=== PATIENT | female | born 1990 | race Two or more races ===

== ENCOUNTER 2018-06-09 07:30 | Inpatient (IN) | payer OTHER ==
[~2018-06-09 07:30] MED LIST: CITRIC ACID/SODIUM CITRATE 30 ML UNIT-DOSE CUP PO ONE; ELECTROLYTE-148 SOLN 500 ML IV SCH
[2018-06-09] MEDS ORDERED: ELECTROLYTE-148 SOLN 500 ML IV SCH (08:00)
[2018-06-09 08:40] VITALS: BMI 43.5
--- NOTE | 2018-06-09 09:44 | HP ---
Past Medical History - Primary Care Physician PCP:: Mary Melgar - Admission Chief Complaint: 28 yrs , 39 weeks , previous c/section type unknown requests for repeat c/section History of Present Illness: care at [address] [place] [address] . wt gain 22 lbs during pregn . panel : AB pos, rpr nr, hbsg neg, hiv neg, rubella immune , quantiferon neg, 1 hr [id number], gc/ct neg, gbs neg sono serial done for growth by MFM report noted post placenta History Source: Medical Record Limitations to Obtaining History: No Limitations - Past Medical History CLINICAL TRIAL LEADER: No: Migraine, Seizure Cardiovascular: No: HTN Pulmonary: No: Asthma Gastrointestinal: No: Gastritis Hepatobiliary: No: Hepatitis B Renal/: No: UTI ...: 3 ...Para: 1 (06/23/2012 primary c/s 34 weeks twins ) ...Term: 1 ...: 0 ...Spon : 1 (2008 ) ...Induced : 0 ...Multiple Gestation: 0 ...LMP: 08/24/17 ... Weeks Gestation by Dates: 41.2 ...EDC by Dates: 05/31/18 ...EDC by Sono: 06/16/18 (39 weeks by sono ) Infectious Disease: No: AIDS, HIV, STD's, Tuberculosis Psych: Yes: Other (declines h/o mental illness) - Past Surgical History Past Surgical History: Yes: (2011 in ) Hx Myomectomy: No Hx Transabdominal Cerclage: No - Smoking History Smoking history: Never smoked Have you smoked in the past 12 months: No - Alcohol/Substance Use Hx Alcohol Use: No History of Substance Use: reports: None - Social History History of Recent Travel: No Home Medications - Allergies Allergies/Adverse Reactions: Allergies Allergy/AdvReac Type Severity Reaction Status Date / Time No Known Allergies Allergy Verified 06/09/18 08:09 - Home Medications Home Medications: Ambulatory Orders Ferrous Sulfate [Feosol] 325 mg PO DAILY 06/09/18 Vitamins (Sjr) - 1 tab PO DAILY 06/09/18 Physical Exam - Maternity Vital Signs: Vital Signs Temperature 98.6 F 06/09/18 08:00 Pulse Rate 111 H 06/09/18 08:00 Respiratory Rate 20 06/09/18 08:00 Blood Pressure 131/64 06/09/18 08:00 O2 Sat by Pulse Oximetry (%) Selected Entries 06/09/18 08:10 Weight 270 lb Constitutional: Yes: Well Nourished, Obese Eyes: Yes: WNL HENT: Yes: WNL, Normocephalic Neck: Yes: WNL Cardiovascular: Yes: WNL, Regular Rate and Rhythm Lungs: Clear to auscultation Breast(s): Yes: WNL (large breast). No: Mass - Vaginal Exam/OB Vaginal Bleediing: No Speculum Exam: No Dilatation (cm): close Effacement (%): unefface Amniotic Membrane Status: Intact Presentation: Vertex/Position Station: -3 - Physical Exam Musculoskeletal: Yes: WNL Extremities: Yes: WNL. No: Calf Tenderness Edema: Yes Edema: LLE: 1+, RLE: 1+ Integumentary: Yes: Incision (pfannensteil scar) Deep Tendon Reflex Grade: Normal +2 ...Motor Strength: WNL Psychiatric: Yes: WNL, Alert, Oriented - Labs Lab Results: Laboratory Tests 06/06/18 06/06/18 06/06/18 17:15 17:15 17:15 WBC 8.0 Hgb 12.5 Hct 39.1 MCV 82.4 MCH 26.4 MCHC 32.1 Plt Count 207 Absolute Neuts (auto) 5.9 Neutrophils % 73.5 Lymphocytes % 19.4 Monocytes % 6.3 PT with INR 11.40 INR 1.01 Sodium Potassium Chloride Carbon Dioxide BUN Creatinine Random Glucose Calcium Total Bilirubin AST ALT Alkaline Phosphatase Total Protein Albumin Urine Protein 1+ H Urine Glucose (UA) 2+ H Ur Leukocyte Esterase Negative Urine WBC (Auto) 1 Urine RBC (Auto) 3 Urine Bacteria Few RPR Titer 06/06/18 06/06/18 17:15 17:15 WBC Hgb Hct MCV MCH MCHC Plt Count Absolute Neuts (auto) Neutrophils % Lymphocytes % Monocytes % PT with INR INR Sodium 139 Potassium 4.1 Chloride 105 Carbon Dioxide 23 BUN 11 Creatinine 0.6 Random Glucose 142 H Calcium 9.3 Total Bilirubin 0.2 AST 11 L ALT 20 Alkaline Phosphatase 123 H Total Protein 7.0 Albumin 3.0 L Urine Protein Urine Glucose (UA) Ur Leukocyte Esterase Urine WBC (Auto) Urine RBC (Auto) Urine Bacteria RPR Titer Nonreactive Hemorrhage Risk Assessment - Risk Factors Medium Risk Factors: Yes: Prior , uterine surgery,or multiple laparotomies, Obesity (BMI >40) Risk Score: 2 Risk Level: High Risk Problem List - Problems (1) with 39 completed weeks gestation Code(s): Z3A.39 - 39 WEEKS GESTATION OF (2) Previous section Code(s): Z98.891 - HISTORY OF UTERINE SCAR FROM PREVIOUS SURGERY (3) Morbid obesity with BMI of 40.0-44.9, adult Code(s): E66.01 - MORBID (SEVERE) OBESITY DUE TO EXCESS CALORIES; Z68.41 - BODY MASS INDEX (BMI) 40.0-44.9, ADULT Assessment/Plan 28 yrs , 39 weeks, previous c/section type unknown requests for repeat c/ section plan Repeat LFTC/Section
[2018-06-09] MEDS ORDERED: morphine SULFATE/Preservative Free 0.5 MG/ML (1cc Syringe) ONE (10:19)
[2018-06-09] MEDS ORDERED: ePHEDrine SULFATE 50 MG/1 ML AMPULE ONE (10:19)
[2018-06-09] MEDS ORDERED: OXYTOCIN 10 UNITS/ML VIAL ONE (10:58)
[2018-06-09] MEDS ORDERED: ceFAZolin SODIUM 1 GM VIAL ONE ×2 (10:58→17:17)
[2018-06-09 11:14] LABS: ARTERIAL BLOOD GAS BASE EXCESS -1.5 meq/l (-2-2); ARTERIAL BLOOD GAS PCO2 62.1 mmHg (35-45); ARTERIAL BLOOD GAS PO2 13.8 mmHg (80-100); ARTERIAL BLOOD GAS pH 7.26 (7.35-7.45)
[2018-06-09 11:22] LABS: VENOUS PC02 48.3 mmHg (38-52); VENOUS PH 7.34 (7.32-7.42); VENOUS PO2 26.5 mmHg (28-48)
[2018-06-09] MEDS ORDERED: OXYTOCIN 20 UNITS in 0.9% NS 20 UNIT/1,000 ML INFUS.BAG IV ONE ×2 (11:32→16:26)
[2018-06-09] MEDS ORDERED: morphine SULFATE/Preservative Free 0.5 MG/ML (1cc Syringe) EP ONE (12:04)
[2018-06-09] MEDS ORDERED: ONDANSETRON 4 MG/2 ML VIAL IVPUSH PRN (12:04)
[2018-06-09] MEDS ORDERED: METHYLERGONOVINE MALEATE 0.2 MG/1 ML AMP IM PRN (12:22)
--- NOTE | 2018-06-09 12:33 | PN ---
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 intra op course uneventful
--- NOTE | 2018-06-09 12:43 | OP ---
Operative Note - Note: Operative Date: 06/09/18 Pre-Operative Diagnosis: 39 weeks, previous c/section type unknown ,morbid obesity Operation: Repeat LFTc/section Findings: baby girl, 9/10 , wt 8'15", 10.48AM , ROP both tubes & ovaries normal Dr Isabelle Kumar Manager Epic present in OR Surgeon: Mary Melgar Panman: Robbi Figueroa Anesthesiologist/SOFTWARE ARCHITECT: Saskia Sorensen MD Anesthesia: Spinal Specimens Removed: cord segment for cord gas. cord blood. placenta Estimated Blood Loss (mls): 800 Drains, Volume Out (mls): 150 Fluid Volume Replaced (mls): 2,000 (2 gm iv ancef intraop ) Operative Report Dictated: Yes
--- NOTE | 2018-06-09 13:15 | OP ---
DATE OF OPERATION: 06/09/2018 PREOPERATIVE DIAGNOSIS: At 39 weeks, previous section type unknown, morbid obesity. OPERATION: Repeat low transverse section. SURGEON: Mary Melgar MD HOME STAGER SURGEON: ODETTE Chan ANESTHESIA: Saskia Sorensen MD, spinal. PRINTING GREY CLOTH TENDER: Regine Walton MD FINDINGS: This is a 28-year-old 3, para 1-0-1-1 previous section for twins in [place] and operative report not obtained. She was not in labor. She is morbidly obese, BMI 43. Baby girl Apgars 9/10. Weight was 8 pounds 15 ounces, ROP position. Cord around the neck x1. DESCRIPTION OF PROCEDURE: The patient is taken to the operating room table, and spinal anesthesia was given. Abdomen was shaved and prepped. Bonilla catheter was placed prior to that. SCD stockings were applied prior to spinal anesthesia. After spinal anesthesia, she was placed in supine position. Abdomen was painted and draped in the usual manner, and Pfannenstiel incision was made through previous scar in skin and subcutaneous tissue. Anterior rectus sheath was incised transversely. Bleeding points were clamped and cauterized. Rectus muscle was from the rectus sheath. Peritoneal peritoneum was opened vertically. The lower flap by the peritoneum was incised transversely. Lower uterine segment was isolated, and the lower uterine segment was incised transversely. Baby girl was delivered at 10: 48 a.m. Apgars were 9/10. Baby's weight was 8 pounds 15 ounces. ROP position. The baby was delivered. Cord around the neck was released. Amniotic fluid was clear. The placenta was removal completely with the membranes, and the uterine incision was closed with 2 layers. First layer was a continuous locking with a Biosyn single suture. Second layer was a continuous intermittent locking with a Biosyn single suture. Small hematoma in the left angle of the uterine incision was taken care of by taking a hemostatic [id number] suture. Bladder peritoneum was closed with an interrupted Biosyn single suture. Both tubes and ovaries were normal. Irrigation was done. Sponge, instrument, and needle count was correct. Closure of the abdomen was done. Parietal peritoneum was closed with a Vicryl 0 suture. Muscles were approximated together with Vicryl 0 sutures. Interrupted sutures were taken underneath the anterior rectus sheath. Hemostasis was verified. Anterior rectus sheath was closed with a Vicryl 0 suture, and continuous sutures were taken. Hemostasis was checked in the subcutaneous tissue. The subcutaneous tissue was approximated with a Biosyn single continuous suture then the skin was approximated with the stephen. The patient tolerated the procedure well. Estimated blood loss was 800 mL. Urine output intraoperatively was 150 mL. She received 2 g of IV Ancef prior to the incision. She was transferred to the recovery room in stable condition. Prior to that, blood clots were removed from the vagina, and pressure dressing was given. Sanya [id number] MTDD
[2018-06-09] MEDS: IBUPROFEN 800 MG/8 ML IJ IVPB PRN ×2 (13:32→22:41)
[2018-06-09] MEDS ORDERED: IBUPROFEN 800 MG/8 ML IJ IVPB ONE (13:34)
[2018-06-09] MEDS: OXYTOCIN 20 UNITS in 0.9% NS 20 UNIT/1,000 ML INFUS.BAG IV SCH (16:30)
[2018-06-09] MEDS ORDERED: DEXTROSE 5%-WATER - 50 ML IVPB ONE (17:17)
[2018-06-09] MEDS: CEFAZOLIN 1 GM in DEXTROSE 5%-WATER - 50 ML IVPB SCH (17:28)
[2018-06-10] MEDS ORDERED: DEXTROSE 5%-WATER - 50 ML IVPB ONE ×2 (02:03→09:59)
[2018-06-10] MEDS ORDERED: ceFAZolin SODIUM 1 GM VIAL ONE ×2 (02:03→09:59)
[2018-06-10] MEDS: CEFAZOLIN 1 GM in DEXTROSE 5%-WATER - 50 ML IVPB SCH ×2 (02:06→10:03)
[2018-06-10] MEDS: ACETAMINOPHEN 325 MG TABLET (FP) PO PRN ×4 (06:47→22:21)
[2018-06-10] MEDS: IBUPROFEN 600 MG TABLET (FP) PO PRN ×4 (06:47→22:20)
[2018-06-10] MEDS: SIMETHICONE 80 MG TAB.CHEW (FP) PO PRN ×4 (06:47→22:20)
[2018-06-10 07:38] LABS: BASO % 0.3 % (0-2.0); EOS % 0.9 % (0-4.5); HEMATOCRIT 35.1 % (32.4-45.2); HEMOGLOBIN 11.1 GM/dL (10.7-15.3); LYMPH % 19.2 % (8-40); MCH 26.2 pg (25.7-33.7); MCHC 31.7 g/dl (32.0-36.0); MEAN CELL VOLUME 82.6 fl (80-96); MEAN PLT VOLUME 9.7 fl (7.5-11.1); MONO % 8.4 % (3.8-10.2); NEUT % 71.2 % (42.8-82.8); PLATELET COUNT 171 K/MM3 (134-434); RBC 4.25 M/mm3 (3.60-5.2); RDW 15.2 % (11.6-15.6); WHITE BLOOD COUNT 8.6 K/mm3 (4.0-10.0)
--- NOTE | 2018-06-10 08:18 | PN ---
Progress Note (short form) - Note Progress Note: Post op day#1.S/P C Section under spinal anesthesia with duramorph uneventful.Patient stable and has little pain for which she is on medication.No any anesthesia related problem.Patient DC from the anesthesia care.
--- NOTE | 2018-06-10 08:26 | PN ---
Progress Note (short form) - Note Progress Note: pod 1doing well, no c/o CBC, BMP 06/10/18 07:05 Last Vital Signs Temp Pulse Resp BP Pulse Ox 98.5 F 114 H 18 125/72 100 06/10/18 06:00 06/10/18 06:00 06/10/18 08:00 06/10/18 06:00 06/09/18 13:15 abdomen soft , no distension , no cva incision dry, clean no calf tenderness impression tachycardia , asymptomatic plan monitor pulse , if tachy ,cont, will get EKG po hydration
[2018-06-10] MEDS: ENOXAPARIN NA (PORCINE) 40 MG/0.4 ML DISP.SYRIN SQ SCH (10:02)
[2018-06-10] MEDS: PRENATAL VITAMINS W/ FOLIC ACID TABLET (FP) PO SCH (10:02)
[2018-06-10] MEDS ORDERED: BISACODYL 10 MG SUPP.RECT RC PRN (12:22)
[2018-06-10] MEDS: OXYTOCIN 20 UNITS in 0.9% NS 20 UNIT/1,000 ML INFUS.BAG IV SCH (18:02)
[2018-06-10] MEDS: SENNOSIDES/DOCUSATE COMBO (SENNA PLUS) TABLET (UD) PO PRN (22:20)
[2018-06-10] MEDS: FERROUS SO4 325 MG TABLET (FP) PO SCH (22:21)
[2018-06-11] MEDS: oxyCODONE HCL 5 MG TABLET PO PRN ×4 (07:49→21:01)
[2018-06-11] MEDS: SIMETHICONE 80 MG TAB.CHEW (FP) PO PRN ×4 (07:50→21:01)
[2018-06-11] MEDS: IBUPROFEN 600 MG TABLET (FP) PO PRN ×3 (07:50→17:18)
--- NOTE | 2018-06-11 08:22 | PN ---
Post Progress Note - Subjective Subjective: c/o pain scale8/10, last pain meds taken at 9.00 PM yesterday voiding without difficlty bmdone Post Day: 2 Type of Delivery: Repeat C/S Vital Signs: Vital Signs Temperature 98.5 F 06/10/18 22:00 Pulse Rate 105 H 06/10/18 22:00 Respiratory Rate 18 06/10/18 22:00 Blood Pressure 105/58 06/10/18 22:00 O2 Sat by Pulse Oximetry (%) 100 06/09/18 13:15 Breast Exam: Yes: Soft. No: Engorged Uterus: Yes: Fundus Firm, Fundus below umbilicus, Non-tender Incision: Yes: [place] intact. No: Redness, Oozing Abdomen/GI: Yes: Abdomen soft, Abdominal Distention (obese abdomen ), Passing flatus, Tolerating PO (diet) Lochia: Yes: Rubra Lochia, amount: Moderate Extremities: Yes: Calves non-tender Perineum: Yes: Intact Activity: Ambulating - Labs Labs: CBC WBC 8.6 K/mm3 (4.0-10.0) 06/10/18 07:05 RBC 4.25 M/mm3 (3.60-5.2) 06/10/18 07:05 Hgb 11.1 GM/dL (10.7-15.3) 06/10/18 07:05 Hct 35.1 % (32.4-45.2) 06/10/18 07:05 MCV 82.6 fl (80-96) 06/10/18 07:05 MCH 26.2 pg (25.7-33.7) 06/10/18 07:05 MCHC 31.7 g/dl (32.0-36.0) L 06/10/18 07:05 RDW 15.2 % (11.6-15.6) 06/10/18 07:05 Plt Count 171 K/MM3 (134-434) 06/10/18 07:05 MPV 9.7 fl (7.5-11.1) 06/10/18 07:05 Absolute Neuts (auto) 6.1 K/mm3 (1.5-8.0) 06/10/18 07:05 Neutrophils % 71.2 % (42.8-82.8) 06/10/18 07:05 Lymphocytes % 19.2 % (8-40) 06/10/18 07:05 Monocytes % 8.4 % (3.8-10.2) 06/10/18 07:05 Eosinophils % 0.9 % (0-4.5) 06/10/18 07:05 Basophils % 0.3 % (0-2.0) 06/10/18 07:05 Nucleated RBC % 0 % (0-0) 06/10/18 07:05 Problem List - Problems (1) with 39 completed weeks gestation Code(s): Z3A.39 - 39 WEEKS GESTATION OF (2) Previous section Code(s): Z98.891 - HISTORY OF UTERINE SCAR FROM PREVIOUS SURGERY (3) Morbid obesity with BMI of 40.0-44.9, adult Code(s): E66.01 - MORBID (SEVERE) OBESITY DUE TO EXCESS CALORIES; Z68.41 - BODY MASS INDEX (BMI) 40.0-44.9, ADULT (4) delivery delivered Code(s): O82 - ENCOUNTER FOR DELIVERY WITHOUT INDICATION (5) Encounter for visit Code(s): Z39.2 - ENCOUNTER FOR ROUTINE FOLLOW-UP Assessment/Plan stable Plan ct post op care encourage ambulation, deep breathing po fluid s
[2018-06-11] MEDS: PRENATAL VITAMINS W/ FOLIC ACID TABLET (FP) PO SCH (09:50)
[2018-06-11] MEDS: FERROUS SO4 325 MG TABLET (FP) PO SCH ×2 (09:50→21:02)
[2018-06-11] MEDS: ENOXAPARIN NA (PORCINE) 40 MG/0.4 ML DISP.SYRIN SQ SCH (09:56)
[2018-06-11] MEDS ORDERED: DIPHTH,PERTUSS(ACELL),TET 0.5 ML DISP.SYRIN IM ONE (10:00)
[2018-06-11] MEDS: ACETAMINOPHEN 325 MG TABLET (FP) PO PRN (21:01)
[2018-06-11] MEDS: SENNOSIDES/DOCUSATE COMBO (SENNA PLUS) TABLET (UD) PO PRN (21:03)
[2018-06-12] MEDS: oxyCODONE HCL 5 MG TABLET PO PRN ×4 (01:23→17:59)
[2018-06-12] MEDS: ACETAMINOPHEN 325 MG TABLET (FP) PO PRN ×2 (01:23→21:13)
[2018-06-12] MEDS: SIMETHICONE 80 MG TAB.CHEW (FP) PO PRN ×5 (01:24→21:13)
[2018-06-12] MEDS: IBUPROFEN 600 MG TABLET (FP) PO PRN ×4 (04:59→21:13)
[2018-06-12] MEDS: SENNOSIDES/DOCUSATE COMBO (SENNA PLUS) TABLET (UD) PO PRN (07:57)
[2018-06-12 08:13] LABS: BASO % 0.4 % (0-2.0); EOS % 3.3 % (0-4.5); HEMATOCRIT 30.5 % (32.4-45.2); HEMOGLOBIN 9.9 GM/dL (10.7-15.3); LYMPH % 31.6 % (8-40); MCH 26.8 pg (25.7-33.7); MCHC 32.6 g/dl (32.0-36.0); MEAN CELL VOLUME 82.4 fl (80-96); MEAN PLT VOLUME 9.6 fl (7.5-11.1); MONO % 8.3 % (3.8-10.2); NEUT % 56.4 % (42.8-82.8); PLATELET COUNT 172 K/MM3 (134-434); RDW 15.1 % (11.6-15.6); WHITE BLOOD COUNT 6.4 K/mm3 (4.0-10.0)
--- NOTE | 2018-06-12 08:35 | PN ---
Post Progress Note - Subjective Subjective: pain scale 10 Post Day: 3 Type of Delivery: Repeat C/S Vital Signs: Vital Signs Temperature 98 F 06/11/18 21:00 Pulse Rate 108 H 06/11/18 21:00 Respiratory Rate 18 06/11/18 21:00 Blood Pressure 103/73 06/11/18 21:00 O2 Sat by Pulse Oximetry (%) 100 06/09/18 13:15 Breast Exam: Yes: Soft, Other (BF ). No: Engorged Uterus: Yes: Fundus Firm, Fundus below umbilicus, Non-tender Incision: Yes: [place] intact. No: Redness, Oozing Abdomen/GI: Yes: Abdomen soft, Abdominal Distention (obese abdomen ), Passing flatus (bm not done ), Tolerating PO (diet ). No: Tender Lochia: Yes: Rubra Lochia, amount: Moderate Extremities: Yes: Calves non-tender Perineum: Yes: Intact Activity: Ambulating - Labs Labs: CBC WBC 6.4 K/mm3 (4.0-10.0) 06/12/18 07:40 RBC 3.70 M/mm3 (3.60-5.2) 06/12/18 07:40 Hgb 9.9 GM/dL (10.7-15.3) L 06/12/18 07:40 Hct 30.5 % (32.4-45.2) L 06/12/18 07:40 MCV 82.4 fl (80-96) 06/12/18 07:40 MCH 26.8 pg (25.7-33.7) 06/12/18 07:40 MCHC 32.6 g/dl (32.0-36.0) 06/12/18 07:40 RDW 15.1 % (11.6-15.6) 06/12/18 07:40 Plt Count 172 K/MM3 (134-434) 06/12/18 07:40 MPV 9.6 fl (7.5-11.1) 06/12/18 07:40 Absolute Neuts (auto) 3.6 K/mm3 (1.5-8.0) 06/12/18 07:40 Neutrophils % 56.4 % (42.8-82.8) D 06/12/18 07:40 Lymphocytes % 31.6 % (8-40) D 06/12/18 07:40 Monocytes % 8.3 % (3.8-10.2) 06/12/18 07:40 Eosinophils % 3.3 % (0-4.5) D 06/12/18 07:40 Basophils % 0.4 % (0-2.0) 06/12/18 07:40 Nucleated RBC % 0 % (0-0) 06/12/18 07:40 Problem List - Problems (1) with 39 completed weeks gestation Code(s): Z3A.39 - 39 WEEKS GESTATION OF (2) Previous section Code(s): Z98.891 - HISTORY OF UTERINE SCAR FROM PREVIOUS SURGERY (3) Morbid obesity with BMI of 40.0-44.9, adult Code(s): E66.01 - MORBID (SEVERE) OBESITY DUE TO EXCESS CALORIES; Z68.41 - BODY MASS INDEX (BMI) 40.0-44.9, ADULT (4) delivery delivered Code(s): O82 - ENCOUNTER FOR DELIVERY WITHOUT INDICATION (5) Encounter for visit Code(s): Z39.2 - ENCOUNTER FOR ROUTINE FOLLOW-UP (6) Anemia Code(s): D64.9 - ANEMIA, UNSPECIFIED Qualifiers: Anemia type: iron deficiency Assessment/Plan stable. plan ct po care discharge tomorrow.
[2018-06-12] MEDS: PRENATAL VITAMINS W/ FOLIC ACID TABLET (FP) PO SCH (09:28)
[2018-06-12] MEDS: FERROUS SO4 325 MG TABLET (FP) PO SCH ×2 (09:28→21:13)
[2018-06-12] MEDS: ENOXAPARIN NA (PORCINE) 40 MG/0.4 ML DISP.SYRIN SQ SCH (09:28)
[2018-06-13] MEDS: IBUPROFEN 600 MG TABLET (FP) PO PRN (02:33)
[2018-06-13] MEDS: ACETAMINOPHEN 325 MG TABLET (FP) PO PRN (02:33)
[2018-06-13] MEDS: SIMETHICONE 80 MG TAB.CHEW (FP) PO PRN (02:33)
[2018-06-13] MEDS: oxyCODONE HCL 5 MG TABLET PO PRN (05:02)
[2018-06-13 07:36] VITALS: BP 115/66; PULSE 88; TEMP 98.4
[2018-06-13] MEDS: FERROUS SO4 325 MG TABLET (FP) PO SCH (09:42)
[2018-06-13] MEDS: PRENATAL VITAMINS W/ FOLIC ACID TABLET (FP) PO SCH (09:42)
[2018-06-13] MEDS: ENOXAPARIN NA (PORCINE) 40 MG/0.4 ML DISP.SYRIN SQ SCH (09:43)
--- NOTE | 2018-06-13 10:04 | DS ---
Physical Exam-TUBE BENDER Vital Signs: Vital Signs Temperature 98.4 F 06/13/18 07:34 Pulse Rate 88 06/13/18 07:34 Respiratory Rate 20 06/13/18 07:34 Blood Pressure 115/66 06/13/18 07:34 O2 Sat by Pulse Oximetry (%) 100 06/09/18 13:15 Constitutional: Yes: Well Nourished, Obese Eyes: Yes: WNL HENT: Yes: WNL, Normocephalic Neck: Yes: WNL Cardiovascular: Yes: WNL, Regular Rate and Rhythm Respiratory: Yes: WNL, CTA Bilaterally Gastrointestinal: Yes: WNL, Normal Bowel Sounds, Soft, Abdomen, Obese, Other ( bm done). No: Distention Renal/: Yes: WNL. No: CVA Tenderness - Left, CVA Tenderness - Right ....Post : Yes: Uterus firm, Uterus non-tender, Moderate lochia rubra Breast(s): Yes: WNL (not engorged) Musculoskeletal: Yes: WNL Extremities: Yes: WNL. No: Calf Tenderness Edema: LLE: 1+, RLE: 1+ Wound/Incision: Yes: Clean/Dry, Open to air, [place] Removed. 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 morbidly obese. intra op course uneventful post op course uneventful anemia counselled discharge today. Discharge Summary Reason For Visit: Current Active Problems Anemia (Acute) delivery delivered (Acute) Encounter for visit (Acute) Morbid obesity with BMI of 40.0-44.9, adult (Acute) with 39 completed weeks gestation (Acute) Previous section (Acute) Condition: Stable - Instructions Diet, Activity, Other Instructions: Post Instructions DIET: Continue good diet high in protein, calcium, and iron rich foods. Drink at least eight (8) glasses of water daily in addition to other fluids. ___ Regular diet MEDICATIONS: Continue vitamins and iron as previously directed. Motrin and Tylenol may be taken for minor discomfort. ACTIVITY: Mild to moderate exercise may be started in two (2) weeks. Take frequent rest periods. Resume normal activity after six (6) week check up. WOUND CARE OF OPERATIVE SITE: Continue use of perineal bottle until vaginal discharge stops. Keep area clean. Shower daily. Keep abdominal wound dry. Report any drainage or redness to physician. Tub baths, tampons and douches are not permitted for [address] Breast feeding & or Bottle feeding BREAST CARE: (For those that are not breast feeding): If engorgement occurs: Wear tight fitting bra. Take Tylenol or Motrin for pain. Apply cold packs (ice in bags to each breast ) FAMILY PLANNING: There are many control alternatives to pursue and they should be discussed at your first office visit. You may resume sexual activity after your six (6) week check up. (Remember, breast feeding is not a contraceptive) NEXT PHYSICIAN APPOINTMENT: Be certain to call for a one (1 ) week appointment, unless otherwise directed. Call Clinic or got to Emergency Dept if you have any of the following: Heavy vaginal bleeding Painful urination Leg pain Unusual odor noted to vaginal bleeding High fever Red streaking noted on breast Referrals: Mary Melgar MD [Staff Physician] - Disposition: HOME - Home Medications Comprehensive Discharge Medication List: Ambulatory Orders Ferrous Sulfate [Feosol] 325 mg PO DAILY 06/09/18 Vitamins (Sjr) - 1 tab PO DAILY 06/09/18 Acetaminophen [Tylenol .Regular Strength -] 500 mg PO Q4H PRN #30 tablet Ferrous Sulfate [Feosol] 325 mg PO BID #60 tab 06/12/18 Ibuprofen [Motrin -] 600 mg PO Q4H PRN #30 tablet 06/12/18 Vitamins (Sjr) - 1 tab PO DAILY #30 tablet 06/12/18
--- NOTE | 2018-06-16 15:38 | PATH ---
Surgical Pathology Report Patient Name: NADEEM TORRES Med. Rec. #: [id number] /Age/Gender: 1990 (Age: 28) / F Account: [id number] Location: [facility] OBS/DOCUMENT DESIGN SPECIALIST Taken: 06/09/2018 Received: 06/10/2018 Reported: 06/16/2018 Physicians: Mary Melgar M.D. Specimen(s) Received PLACENTA Clinical History Final Diagnosis PLACENTA, SECTION: 494 G THIRD TRIMESTER PLACENTA WITH TRIVASCULAR UMBILICAL CORD AND MILD ACUTE CHORIOAMNIONITIS. Electronically Signed Natalie Trujillo M.D. Gross Description The specimen is received fresh labeled placenta and is a 494 gram, 17.0 x 13.0 x 3.2 cm. placenta with attached membranes and umbilical cord. The attached membranes are gao, translucent with focal opacities and insert marginally. The umbilical cord measures 25 cm. in length and averages 1 cm. in diameter. The cord inserts eccentrically, 4.5 cm. to the nearest margin. No true knots or strictures are identified. Cut surface of the umbilical cord reveals 3 vessels. The surface is padgett-blue with minimal fibrin deposition and appropriate caliber vessels. The maternal surface is red-brown and intact. Sectioning reveals red-brown, spongy parenchyma. No lesions are identified. Field Marketing Lead sections are submitted in three cassettes as follows: 1- membrane rolls and umbilical cord; 2-3- full thickness sections of placenta. 06/15/2018 [facility]06/15/2018
== END 2018-06-13 11:45 | disposition home or self-care (01) | DRG 540 ==
LOC: JLDR 07:30 → J3W 14:10
PROVIDERS: ADMIT Obstetrics & Gynecology; ATTEND Obstetrics & Gynecology
PROC: 10D00Z1 Extraction of Products of Conception, Low, Open Approach (ICD-10-PCS; principal; 2018-06-09)
DX: O34.211 Maternal care for low transverse scar from previous cesarean delivery (principal); N85.8 Other specified noninflammatory disorders of uterus; O99.214 Obesity complicating childbirth; E66.01 Morbid (severe) obesity due to excess calories; Z68.41 Body mass index [BMI] 40.0-44.9, adult; O99.02 Anemia complicating childbirth; D64.9 Anemia, unspecified; Z3A.39 39 weeks gestation of pregnancy; Z37.0 Single live birth
CPT/HCPCS: 36415; 36600; 82803; 85025; 88307-TC; 90715; 94010

== ENCOUNTER → 2020-12-02 | Day surgery (SDC) | payer OTHER ==
[2020-11-28 12:18] VITALS: BMI 31.9
[~2020-12-02] MED LIST changes: +BUPIVACAINE HCL 50 ML ONE; +BUPIVACAINE HCL/PF 0.25% (2.5MG/ML) 10 ML VIAL ONE; -CITRIC ACID/SODIUM CITRATE 30 ML UNIT-DOSE CUP PO ONE; -ELECTROLYTE-148 SOLN 500 ML IV SCH
== END | disposition home or self-care (01) ==
LOC: JASU-SURG 04:24
PROVIDERS: ATTEND Obstetrics & Gynecology
DX: Z53.8 Procedure and treatment not carried out for other reasons (principal)

== ENCOUNTER 2022-10-13 12:31 | Observation (INO) | payer OTHER ==
[2022-10-13 12:42] VITALS: BMI 29.7
[2022-10-13 13:56] LABS: BASO % 0.7 % (0-2.0); EOS % 0.9 % (0-4.5); HEMATOCRIT 35.3 % (32.4-45.2); HEMOGLOBIN 10.7 GM/dL (10.7-15.3); LYMPH % 34.1 % (8-40); MCH 22.5 pg (25.7-33.7); MCHC 30.3 g/dl (32.0-36.0); MEAN CELL VOLUME 74.3 fl (80-96); MEAN PLT VOLUME 10.3 fl (7.5-11.1); MONO % 7.9 % (3.8-10.2); NEUT % 56.4 % (42.8-82.8); PLATELET COUNT 257 10^3/uL (134-434); RBC 4.76 M/mm3 (3.60-5.2); RDW 15.8 % (11.6-15.6); WHITE BLOOD COUNT 4.7 K/mm3 (4.0-10.0)
[2022-10-13 14:00] LABS: INR 1.11 (0.83-1.09); PROTHROMBIN TIME (PATIENT) 12.8 SEC (9.7-13.0)
[2022-10-13 14:03] LABS: ACTIVATED PTT 26.6 SECONDS (25.2-36.5)
[2022-10-13 14:31] LABS: ALBUMIN 3.9 g/dl (3.4-5.0)
[2022-10-13 14:32] LABS: BLOOD UREA NITROGEN 23.3 mg/dL (7-18)
[2022-10-13 14:34] LABS: CREATININE 0.8 mg/dL (0.55-1.3)
[2022-10-13 14:36] LABS: TOT PROT 7.7 g/dl (6.4-8.2)
[2022-10-13 14:37] LABS: BILIRUBIN,TOTAL 0.6 mg/dL (0.2-1)
[2022-10-14 01:21] VITALS: TEMP 98.2
[2022-10-14 08:19] LABS: BASO % 1.2 % (0-2.0); EOS % 1.8 % (0-4.5); HEMATOCRIT 32.1 % (32.4-45.2); HEMOGLOBIN 9.8 GM/dL (10.7-15.3); MCH 22.6 pg (25.7-33.7); MCHC 30.6 g/dl (32.0-36.0); MEAN CELL VOLUME 73.9 fl (80-96); MEAN PLT VOLUME 10.1 fl (7.5-11.1); MONO % 7.5 % (3.8-10.2); NEUT % 47.5 % (42.8-82.8); PLATELET COUNT 222 10^3/uL (134-434); RBC 4.35 M/mm3 (3.60-5.2); RDW 15.9 % (11.6-15.6); WHITE BLOOD COUNT 4.9 K/mm3 (4.0-10.0)
[2022-10-14 08:25] LABS: ALBUMIN 3.6 g/dl (3.4-5.0); MAGNESIUM 2.4 mg/dL (1.8-2.4)
[2022-10-14 08:27] LABS: PHOSPHOROUS 3.3 mg/dL (2.5-4.9)
[2022-10-14 08:29] LABS: BILIRUBIN,TOTAL 0.6 mg/dL (0.2-1)
[2022-10-14 08:30] LABS: CREATININE 0.7 mg/dL (0.55-1.3)
[2022-10-14 09:42] VITALS: BP 101/67; PULSE 86; RESP 18
[2022-10-14] MEDS ORDERED: ENOXAPARIN NA (PORCINE) 40 MG/0.4 ML DISP.SYRIN SQ SCH (10:00)
[2022-10-14 11:23] LABS: URINE APPEARANCE TURBID; URINE BILIRUBIN NEGATIVE (NEGATIVE); URINE COLOR DK YELLOW; URINE GLUCOSE (UA) NEGATIVE (NEGATIVE); URINE KETONE TRACE (NEGATIVE); URINE LEUK ESTERASE NEGATIVE (NEGATIVE); URINE NITRITE NEGATIVE (NEGATIVE); URINE PROTEIN NEGATIVE (NEGATIVE)
[2022-10-14] MEDS ORDERED: ENOXAPARIN NA (PORCINE) 40 MG/0.4 ML DISP.SYRIN SQ ONE (11:47)
[2022-10-14] MEDS ORDERED: ATORVASTATIN CA 80 MG TABLET (FP) PO SCH (22:00)
== END 2022-10-14 17:26 | disposition home or self-care (01) ==
LOC: JER 12:31 → JERBED 16:25
PROVIDERS: ADMIT Internal Medicine; ATTEND Internal Medicine
PROC: 3E023GC Introduction of Other Therapeutic Substance into Muscle, Percutaneous Approach (ICD-10-PCS; principal; 2022-10-13)
DX: G45.9 Transient cerebral ischemic attack, unspecified (principal); R29.810 Facial weakness; M62.81 Muscle weakness (generalized); F99 Mental disorder, not otherwise specified; D64.9 Anemia, unspecified; E66.3 Overweight; Z68.29 Body mass index [BMI] 29.0-29.9, adult
CPT/HCPCS: 36415; 70450-TC; 70496-TC; 70498-TC; 70551-TC; 80053; 80061; 81003; 82550; 83036; 83735; 84100; 84484; 84703; 85025; 85610; 85730; 86850; 86900; 86901; 93005; 93010; 93306-TC; 96372; 99285-25; C9803-CS; G0378; Q9967; U0003; U0005

== ENCOUNTER 2023-12-24 16:53 | Emergency (ER) | payer OTHER ==
[2023-12-24 17:02] VITALS: BP 100/64; PULSE 96; RESP 18; TEMP 97; BMI 27.8
[2023-12-24 19:45] LABS: BASO % 1.2 % (0-2.0); EOS % 0.7 % (0-4.5); HEMATOCRIT 26.4 % (32.4-45.2); HEMOGLOBIN 7.9 GM/dL (10.7-15.3); LYMPH % 39.5 % (8-40); MEAN PLT VOLUME 8.9 fl (7.5-11.1); MONO % 6.5 % (3.8-10.2); NEUT % 52.1 % (42.8-82.8); PLATELET COUNT 356 10^3/uL (134-434); WHITE BLOOD COUNT 4.3 K/mm3 (4.0-10.0)
[2023-12-24 19:47] LABS: MCH 18.9 pg (25.7-33.7)
[2023-12-24 19:52] LABS: INR 1.06 (0.83-1.09); PROTHROMBIN TIME (PATIENT) 12.3 SEC (9.7-13.0)
[2023-12-24 19:55] LABS: ACTIVATED PTT 26.3 SECONDS (25.2-36.5)
[2023-12-24 20:03] LABS: POTASSIUM 4.3 mmol/L (3.5-5.1)
[2023-12-24 20:05] LABS: CALCIUM 9.2 mg/dL (8.5-10.1)
[2023-12-24 20:06] LABS: ALBUMIN 3.7 g/dl (3.4-5.0); BLOOD UREA NITROGEN 17.2 mg/dL (7-18)
[2023-12-24 20:09] LABS: CREATININE 0.7 mg/dL (0.55-1.3)
[2023-12-24 20:11] LABS: TOT PROT 7.4 g/dl (6.4-8.2)
[2023-12-24 20:16] LABS: BILIRUBIN,TOTAL 0.2 mg/dL (0.2-1)
[2023-12-24 20:46] LABS: ANISOCYTOSIS 1+; OVALOCYTE 1+; TEAR DROP CELLS 1+
[2023-12-24 20:51] LABS: PLATELET ESTIMATE ADEQUATE
== END 2023-12-24 23:31 | disposition home or self-care (01) ==
LOC: JER 16:53
DX: R42 Dizziness and giddiness (principal); R53.1 Weakness; D64.9 Anemia, unspecified
CPT/HCPCS: 36415; 36430; 80053; 84703; 85025; 85610; 85730; 86850; 86900; 86901; 86922; 99283-25; P9038; P9058

== ENCOUNTER 2024-03-03 09:20 | Day surgery (SDC) | payer OTHER ==
[2024-03-03] MEDS: FERRIC CARBOXYMALTOSE 750 MG in SODIUM CHLORIDE 250 ML IVPB ONE (09:35)
[2024-03-03 16:45] VITALS: RESP 16; TEMP 98.4
[2024-03-03 16:47] VITALS: BP 119/69; PULSE 68
== END 2024-03-03 10:35 | disposition home or self-care (01) ==
LOC: JONCNONCHE 09:20 → J7W 09:46 → JONCNONCHE 10:35
PROVIDERS: ATTEND Internal Medicine Hematology & Oncology
PROC: 3E033GC Introduction of Other Therapeutic Substance into Peripheral Vein, Percutaneous Approach (ICD-10-PCS; principal; 2024-03-03)
DX: D50.9 Iron deficiency anemia, unspecified (principal)
CPT/HCPCS: 96365; J1439

== ENCOUNTER 2024-03-10 09:19 | Day surgery (SDC) | payer OTHER ==
[2024-03-10] MEDS: FERRIC CARBOXYMALTOSE 750 MG in SODIUM CHLORIDE 250 ML IVPB ONE (09:29)
[2024-03-10 09:35] VITALS: PULSE 74; RESP 18; TEMP 98.2
[2024-03-10 11:19] VITALS: BP 108/64
== END 2024-03-10 10:30 | disposition home or self-care (01) ==
LOC: JONCNONCHE 09:19 → J7W 09:20 → JONCNONCHE 10:30
PROVIDERS: ATTEND Internal Medicine Hematology & Oncology
PROC: 3E033GC Introduction of Other Therapeutic Substance into Peripheral Vein, Percutaneous Approach (ICD-10-PCS; principal; 2024-03-10)
DX: D50.9 Iron deficiency anemia, unspecified (principal)
CPT/HCPCS: 96365; J1439

== ENCOUNTER 2025-05-25 09:15 | Day surgery (SDC) | payer OTHER ==
[2025-05-25] MEDS: ACETAMINOPHEN 325 MG TABLET (FP) PO ONE (09:50)
[2025-05-25] MEDS: diphenhydrAMINE HCL 25 MG CAPSULE (FP) PO ONE (09:50)
[2025-05-25] MEDS: FERRIC CARBOXYMALTOSE 750 MG in SODIUM CHLORIDE 250 ML IVPB ONE (10:17)
[2025-05-25 11:52] VITALS: RESP 18; TEMP 97.6
[2025-05-25 12:04] VITALS: BP 105/62; PULSE 68
== END 2025-05-25 11:20 | disposition home or self-care (01) ==
LOC: JONCNONCHE 09:15
PROVIDERS: ATTEND Nurse Practitioner Family
PROC: 3E033GC Introduction of Other Therapeutic Substance into Peripheral Vein, Percutaneous Approach (ICD-10-PCS; principal; 2025-05-25)
DX: D50.9 Iron deficiency anemia, unspecified (principal)
CPT/HCPCS: 96365; J1439

== ENCOUNTER 2025-06-01 09:31 | Day surgery (SDC) | payer OTHER ==
[2025-06-01] MEDS: diphenhydrAMINE HCL 25 MG CAPSULE (FP) PO ONE (09:25)
[2025-06-01] MEDS: ACETAMINOPHEN 325 MG TABLET (FP) PO ONE (09:25)
[2025-06-01] MEDS: FERRIC CARBOXYMALTOSE 750 MG in SODIUM CHLORIDE 250 ML IVPB ONE (10:25)
[2025-06-01 11:05] VITALS: RESP 20; TEMP 98.3
[2025-06-01 11:14] VITALS: BP 109/72; PULSE 78
== END 2025-06-01 11:30 | disposition home or self-care (01) ==
LOC: JONCCHEMO 09:31 → J7W 09:32 → JONCCHEMO 11:30
PROVIDERS: ATTEND Nurse Practitioner Family
PROC: 3E033GC Introduction of Other Therapeutic Substance into Peripheral Vein, Percutaneous Approach (ICD-10-PCS; principal; 2025-06-01)
DX: D50.9 Iron deficiency anemia, unspecified (principal)
CPT/HCPCS: 96365; J1439